=== PATIENT | male | born 1965 | race African-American/Black ===

== ENCOUNTER 2018-01-31 00:58 | Emergency (ER) | payer SELFPAY ==
[2018-01-31] MEDS: IV NORMAL SALINE 1000ML BAG 1,000 ML IV (01:57)
[2018-01-31] MEDS: METOCLOPRAMIDE HCL 10 MG/2 ML VIAL. IV (01:58)
[2018-01-31] MEDS: diphenhydrAMINE 50 MG/ML VIAL IVP (01:59)
[2018-01-31] MEDS: KETOROLAC 30 MG/ML INJ. IV (02:01)
[2018-01-31] MEDS: methylPREDNISolone SOD SUCC PF 125 MG/2 ML VIAL. IV (02:05)
== END 2018-01-31 03:57 | disposition home or self-care (01) ==
LOC: ER 00:58
DX: R51 Headache (principal)
CPT/HCPCS: 96374; 96375; 99284; J1200; J1885; J2765; J2930; J7030